=== PATIENT | male | born 1965 | race Caucasian/White ===

== ENCOUNTER 2016-07-22 12:44 | Emergency (ER) | payer MEDICAID ==
[~2016-07-22] VITALS: Wt 81.0 kg
[~2016-07-22 12:44] MED LIST: ALBU8.5H3 INH; CETI10CA PO; GUAI118L94 PO; IBUP-1542 PO
[2016-07-22] MEDS ORDERED: HYDROCODONE/APAP (5/325) TAB PO ONE (13:30)
--- NOTE | 2016-07-22 13:49 | ERD ---
ER Documentation Chief Complaint Date/Time DATE: 07/22/16 TIME: 13:46 Chief Complaint LEFT KNEE PAIN X 6 MONTH HPI This a 51-year-old male who presents to the emergency department today complaining of left knee pain that is intermittent for the past 6 months however worse the past couple of days. He has not taken any medication for the pain. 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 Denies any fevers or chills ROS All systems reviewed and are negative except as per history of present illness. Medications Home Meds Active Scripts Acetaminophen* (Tylophen*) 500 Mg Capsule, 1 CAP PO Q6H Y for PAIN AND OR ELEVATED TEMP, #30 CAP Prov:CLARICE SOSA PA-C 07/22/16 Naproxen* (Naprosyn*) 500 Mg Tablet, 500 MG PO BID Y for PAIN AND/OR INFLAMMATION, #30 TAB Prov:CLARICE SOSA PA-C 07/22/16 Tramadol HCl (Tramadol HCl) 50 Mg Tablet, 50 MG PO Q4 Y for PAIN, #20 TAB Prov:CLARICE SOSA PA-C 07/22/16 Albuterol Sulfate* (Proair HFA*) 8.5 Gm Hfa.aer.ad, 2 PUFF INH Q4H Y for WHEEZING AND SOB, #1 INHALER Prov:SAPPHIRE MUNSON NP 06/11/15 Ibuprofen* (Ibuprofen*) 600 Mg Tablet, 600 MG PO Q6H Y for PAIN AND OR ELEVATED TEMP, #30 TAB Prov:SAPPHIRE MUNSON NP 06/11/15 Cetirizine Hcl* (Zyrtec*) 10 Mg Capsule, 10 MG PO DAILY, #30 TAB Prov:SAPPHIRE MUNSON NP 06/11/15 Guaifenesin-Codeine Phosphate* (Guaifenesin* with Codeine Liq) 120 Ml Liquid, 5 ML PO Q4H for COUGH, #60 ML Prov:SAPPHIRE MUNSON [employer]ARD [employer]RAKEM[employer] 06/11/15 Reported Medications [none] Unknown Strength No Conflict Check 06/11/15 Allergies Allergies: Coded Allergies: No Known Drug Allergies (Unverified Allergy, Unknown, 07/22/16) PMhx/Soc Medical and Surgical Hx: pt denies Medical Hx History of Surgery: Yes (hernia surgery) Anesthesia Reaction: No Hx Neurological Disorder: No Hx Respiratory Disorders: No Hx Cardiac Disorders: No Hx Psychiatric Problems: No Hx Miscellaneous Medical Probl: No Hx Alcohol Use: No Hx Substance Use: No Hx Tobacco Use: No Smoking Status: Never smoker Physical Exam Vitals Vital Signs Date Time Temp Pulse Resp B/P Pulse Ox O2 Delivery O2 Flow Rate FiO2 07/22/16 12:53 98.0 69 18 122/80 99 Physical Exam Const: No acute distress Head: Atraumatic Eyes: Normal Conjunctiva ENT: Normal External Ears, Nose and Mouth. Neck: Full range of motion..~ No meningismus. Resp: Clear to auscultation bilaterally Cardio: Regular rate and rhythm, no murmurs Skin: No petechiae or rashes MSK: No obvious deformity. No effusion. No ecchymosis. Tenderness to palpation medial joint line. Full active range of motion. Pulses 2+. Distal neurovascularly intact. Neur: Awake and alert Psych: Normal Mood and Affect Results 24 hrs Current Medications Medications (Trade) Dose Ordered Sig/William Route PRN Reason Start Time Stop Time Status Last Admin Dose Admin Acetaminophen/ Hydrocodone Bitart (Mead (5/325)) 1 tab ONCE ONCE PO 07/22/16 13:30 07/22/16 13:31 DC 07/22/16 13:21 DIAGNOSTIC IMAGING REPORT Patient: EUGENE SHANE : 1965 Age: 51 Sex: M MR #: [id number] DOS: 07/22/16 0000 Ordering MD: CLARICE SOSA PA-C Location: [facility] Room/Bed: PROCEDURE: XR Knee. CLINICAL INDICATION: Pain TECHNIQUE: AP, lateral and oblique view of the left knee were obtained. The images reviewed on a PACS workstation. COMPARISON: None. FINDINGS: Three views of the left knee demonstrate no displaced fracture. No gross malalignment is seen. There is no significant degenerate change. No patellofemoral disease is identified. No knee joint effusion is seen.. The bones normally mineralized. The soft tissues are unremarkable. IMPRESSION: No acute fracture dislocation RPTAT: .Jay Moreno MD, MD Date Time Electronically viewed and signed by .Jay Moreno MD, MD on 07/22/2016 14:05 .W/ CC: CLARICE SOSA PA-C Procedures/MDM This a 51-year-old male who presents the emergency department complaining of left knee pain that is been intermittent for the past 6 months and worse for the past 2 days. Given patient's duration of symptoms I did obtain images. Per the radiology report images of the left knee show no gross malalignment. There is no significant degenerative changes. There are no patellofemoral disease identified. There is no knee joint effusion seen. Soft tissues are unremarkable. Patient is afebrile and otherwise well-appearing. There is no erythema or warmth and low suspicion for septic joint or gout. Patient has left knee pain that is chronic of uncertain etiology.I explained to the patient that the x- rays will not look at his ligaments or cartilage. I have instructed the patient that he needs to follow-up with his primary care physician for possible referral to orthopedics. Patient understood. Patient was given Mead for pain. I will give him a prescription for tramadol and Naprosyn, Tylenol for home. He is instructed to apply ice. At this time the patient is stable for discharge and outpatient management. Patient should follow up with their PCP in the next 1-2 days. They may return to the emergency department sooner for any persistent or worsening of symptoms. Patient understood and agreed with the plan. Departure Diagnosis: Primary Impression: Knee pain Laterality: left Chronicity: chronic Qualified Code: M25.562 - Chronic pain of left knee Condition: Fair CLARICE SOSA PA-C Jul 22, 2016 13:49
--- NOTE | 2016-07-22 14:05 | RADRPT ---
PROCEDURE: XR Knee. CLINICAL INDICATION: Pain TECHNIQUE: AP, lateral and oblique view of the left knee were obtained. The images reviewed on a PACS workstation. COMPARISON: None. FINDINGS: Three views of the left knee demonstrate no displaced fracture. No gross malalignment is seen. The re is no significant degenerate change. No patellofemoral disease is identified. No knee joint effus ion is seen.. The bones normally mineralized. The soft tissues are unremarkable. IMPRESSION: No acute fracture dislocation RPTAT: HH .Jay Moreno MD, MD Date Time Electronically viewed and signed by .Jay Moreno MD, on 07/22/2016 14:05 .W/
[2016-07-22] MEDS ORDERED: TRAM50TA2 PO (14:17)
[2016-07-22] MEDS ORDERED: NAPR-260 PO (14:18)
[2016-07-22] MEDS ORDERED: ACET500C5 PO (14:19)
== END 2016-07-22 14:34 | disposition home or self-care (01) ==
LOC: FTE 12:44
DX: M25.562 Pain in left knee (principal)
CPT/HCPCS: 73562; Z7502; Z7610

== ENCOUNTER 2017-06-07 06:40 | Emergency (ER) | END 2017-06-07 09:22 | disposition home or self-care (01) ==

== ENCOUNTER 2018-05-16 00:28 | Emergency (ER) | payer MEDICAID ==
[~2018-05-16] VITALS: Wt 87.0 kg
[~2018-05-16 00:28] MED LIST changes: +ACET500C5 PO; -ALBU8.5H3 INH; +ALBU8.5H8 INH; +DOCU-144 PO; +NAPR-985 PO; +OSEL75CA23 PO; +TRAM50TA2 PO
[2018-05-16] MEDS ORDERED: ONDANSETRON 4 MG INJ IV STA (01:38)
[2018-05-16] MEDS ORDERED: morphine 4 MG/ML VIAL IV STA (01:38)
[2018-05-16] MEDS ORDERED: SOD CHLORIDE 0.9% 1,000 ML IV STA (01:38)
[2018-05-16] MEDS ORDERED: AMLO-147 PO (02:56)
[2018-05-16] MEDS ORDERED: POTA10TA18 PO (02:56)
[2018-05-16] MEDS ORDERED: PRAV20TA63 PO (02:56)
[2018-05-16] MEDS ORDERED: TRAM50TA2 PO (05:12)
[2018-05-16] MEDS ORDERED: ONDA4TAB14 PO (05:12)
[2018-05-16 05:40] VITALS: BP 125/80; PULSE 80; RESP 15
--- NOTE | 2018-05-24 00:06 | ERD ---
ER Documentation Chief Complaint Chief Complaint AP, VOMITING X'S 4 HOURS HPI This is a 53-year-old male with abdominal pain vomiting for 4 hours. Pain is mild to moderate intensity no exacerbating factors. Vomiting is 4 episodes nonbilious. No fevers no chills. No other current complaints. ROS All systems reviewed and are negative except as per history of present illness. Medications Home Meds Active Scripts Prednisone* (Prednisone*) 20 Mg Tab, 40 MG PO DAILY for 2 Days, TAB Start May 22, 2018 Prov:HYUN WEATHERS MD 05/21/18 Diphenhydramine Hcl* (Benadryl*) 25 Mg Cap, 25 MG PO Q6, #20 CAP Prov:HYUN WEATHERS MD 05/21/18 Ondansetron (Ondansetron Odt) 4 Mg Tab.rapdis, 4 MG PO Q6H PRN for NAUSEA AND/OR VOMITING, #10 TAB Prov:LANRE BARNEY S. 05/16/18 Tramadol HCl (Tramadol HCl) 50 Mg Tablet, 50 MG PO Q4 PRN for PAIN, #20 TAB Prov:LANRE BARNEY S. 05/16/18 Docusate Sodium* (Colace*) 100 Mg Capsule, 100 MG PO BID, #60 CAP Prov:USAMA OLIVERA 06/07/17 Acetaminophen* (Tylophen*) 500 Mg Capsule, 1 CAP PO Q6H PRN for PAIN AND OR ELEVATED TEMP, #30 CAP Prov:CLARICE SOSA PA-C 07/22/16 Ibuprofen* (Ibuprofen*) 600 Mg Tablet, 600 MG PO Q6H PRN for PAIN AND OR ELEVATED TEMP, #30 TAB Prov:SAPPHIRE MUNSON NP 06/11/15 Reported Medications Amlodipine Besylate* (Amlodipine Besylate*) 10 Mg Tablet, 10 MG PO DAILY, #30 TAB 05/16/18 Potassium Citrate* (Potassium Citrate* ER) 10 Meq Tablet.sa, 10 MEQ PO BID, TAB.SA 05/16/18 Pravastatin Sodium* (Pravastatin Sodium*) 20 Mg Tablet, 20 MG PO HS, #30 TAB 05/16/18 Allergies Allergies: Coded Allergies: No Known Drug Allergies (Unverified Allergy, Unknown, 05/16/18) PMhx/Soc History of Surgery: Yes (hernia surgery) Anesthesia Reaction: No Hx Neurological Disorder: No Hx Respiratory Disorders: No Hx Cardiac Disorders: No Hx Psychiatric Problems: No Hx Miscellaneous Medical Probl: Yes (GASTRITIS) Hx Alcohol Use: No Hx Substance Use: No Hx Tobacco Use: No Smoking Status: Never smoker Physical Exam Physical Exam Const: No acute distress Head: Atraumatic Eyes: Normal Conjunctiva ENT: Normal External Ears, Nose and Mouth. Neck: Full range of motion. No meningismus. Resp: Clear to auscultation bilaterally Cardio: Regular rate and rhythm, no murmurs Abd: Soft, non tender, non distended. Normal bowel sounds Skin: No petechiae or rashes Back: No midline or flank tenderness Ext: No cyanosis, or edema Neur: Awake and alert Psych: Normal Mood and Affect Results 24 hrs Laboratory Tests Test 05/16/18 02:00 05/16/18 04:46 White Blood Count 8.6 10^3/ul Red Blood Count 5.32 10^6/ul Hemoglobin 15.8 g/dl Hematocrit 45.4 % Mean Corpuscular Volume 85.3 fl Mean Corpuscular Hemoglobin 29.7 pg Mean Corpuscular Hemoglobin Concent 34.8 g/dl Red Cell Distribution Width 12.3 % Platelet Count 152 10^3/UL Mean Platelet Volume 10.2 fl Immature Granulocytes % 0.300 % Neutrophils % 89.7 % Lymphocytes % 3.5 % Monocytes % 4.4 % Eosinophils % 1.4 % Basophils % 0.7 % Nucleated Red Blood Cells % 0.0 /100WBC Immature Granulocytes # 0.030 10^3/ul Neutrophils # 7.7 10^3/ul Lymphocytes # 0.3 10^3/ul Monocytes # 0.4 10^3/ul Eosinophils # 0.1 10^3/ul Basophils # 0.1 10^3/ul Nucleated Red Blood Cells # 0.0 10^3/ul Sodium Level 141 mmol/L Potassium Level 4.0 mmol/L Chloride Level 108 mmol/L Carbon Dioxide Level 22 mmol/L Anion Gap 11 Blood Urea Nitrogen 17 mg/dl Creatinine 0.82 mg/dl Est Glomerular Filtrat Rate mL/min > 60 mL/min Glucose Level 138 mg/dl Calcium Level 8.7 mg/dl Total Bilirubin 0.9 mg/dl Direct Bilirubin 0.00 mg/dl Indirect Bilirubin 0.9 mg/dl Aspartate Amino Transf (AST/SGOT) 29 IU/L Alanine Aminotransferase (ALT/SGPT) 25 IU/L Alkaline Phosphatase 65 IU/L Total Protein 7.1 g/dl Albumin 4.3 g/dl Globulin 2.80 g/dl Albumin/Globulin Ratio 1.53 Lipase 44 U/L Urine Color YELLOW Urine Clarity CLEAR Urine pH 6.0 Urine Specific [place] 1.021 Urine Ketones TRACE mg/dL Urine Nitrite NEGATIVE mg/dL Urine Bilirubin NEGATIVE mg/dL Urine Urobilinogen 2+ mg/dL Urine Leukocyte Esterase NEGATIVE Patricia/ul Urine Hemoglobin NEGATIVE mg/dL Urine Glucose NEGATIVE mg/dL Urine Total Protein NEGATIVE mg/dl Current Medications Medications Dose Sig/William Start Time Status Last (Trade) Ordered Route PRN Stop Time Admin Dose Reason Admin Sodium 1,000 ml @ Q1H STAT 05/16/18 DC 05/16/18 Chloride 1,000 mls/hr IV 01:38 01:57 05/16/18 02:37 Morphine 4 mg ONCE STAT 05/16/18 DC 05/16/18 Sulfate IV 01:38 01:58 (morphine) 05/16/18 01:40 Ondansetron 4 mg ONCE STAT 05/16/18 DC 05/16/18 HCl (Zofran IV 01:38 01:58 Inj) 05/16/18 01:40 Procedures/MDM Medical decision making: This is a 53-year-old male has multiple causes of moderate abdominal pain including sludge in his gallbladder upon a hiatal hernia. At this point he has no evidence of surgical abdomen and I feel he is phase stable for trial of outpatient management. Patient's gastrointestinal symptoms have stabilized while in the department. No evidence of severe dehydration, sepsis, or surgical abdomen. Extensive discussion with family and patient that occult disease cannot be ruled out. 8 hour recheck for repeat abdominal exam is planned. Departure Diagnosis: Primary Impression: Abdominal pain Abdominal location: unspecified location Qualified Codes: R10.9 - Unspecified abdominal pain Condition: Stable Patient Instructions: Gallstones LANRE BARNEY May 24, 2018 00:06
== END 2018-05-16 05:40 | disposition home or self-care (01) ==
LOC: E/R 00:28
DX: R10.9 Unspecified abdominal pain (principal); R11.10 Vomiting, unspecified
CPT/HCPCS: 71045; 74176; 76705; 80053; 81003; 83690; 85025; J2270; J2405; J7030; 36415; 96374; 96375

== ENCOUNTER 2018-05-21 10:52 | Emergency (ER) | payer MEDICAID ==
[~2018-05-21] VITALS: Ht 167.6 cm; Wt 84.8 kg
[~2018-05-21 10:52] MED LIST changes: -ALBU8.5H8 INH; +AMLO-147 PO; -CETI10CA PO; -GUAI118L94 PO; -NAPR-985 PO; +ONDA4TAB14 PO; -OSEL75CA23 PO; +POTA10TA18 PO; +PRAV20TA63 PO
[2018-05-21 10:55] VITALS: BP 114/76; PULSE 73; RESP 20; Ht 167.6 cm; Wt 84.8 kg
[2018-05-21] MEDS ORDERED: DIPHENHYDRAMINE 25 MG CAP PO ONE (12:00)
[2018-05-21] MEDS ORDERED: predniSONE 20 MG TAB PO ONE (12:00)
[2018-05-21] MEDS ORDERED: BEN25 PO (12:03)
[2018-05-21] MEDS ORDERED: PRED20TA PO (12:03)
--- NOTE | 2018-05-21 12:05 | ERD ---
ER Documentation Chief Complaint Chief Complaint Complains of an allergic reaction since this am HPI This 53-year-old male presents with a rash since this morning. Is itchy on his trunk and extremities. History significant for starting tramadol and Zofran 3 days ago. Denies shortness of breath, fevers, additional symptoms. ROS All systems reviewed and are negative except as per history of present illness. Medications Home Meds Active Scripts Prednisone* (Prednisone*) 20 Mg Tab, 40 MG PO DAILY for 2 Days, TAB Start May 22, 2018 Prov:HYUN WEATHERS MD 05/21/18 Diphenhydramine Hcl* (Benadryl*) 25 Mg Cap, 25 MG PO Q6, #20 CAP Prov:HYUN WEATHERS MD 05/21/18 Ondansetron (Ondansetron Odt) 4 Mg Tab.rapdis, 4 MG PO Q6H PRN for NAUSEA AND/OR VOMITING, #10 TAB Prov:LANRE BARNEY S. 05/16/18 Tramadol HCl (Tramadol HCl) 50 Mg Tablet, 50 MG PO Q4 PRN for PAIN, #20 TAB Prov:LANRE BARNEY S. 05/16/18 Docusate Sodium* (Colace*) 100 Mg Capsule, 100 MG PO BID, #60 CAP Prov:USAMA OLIVERA 06/07/17 Acetaminophen* (Tylophen*) 500 Mg Capsule, 1 CAP PO Q6H PRN for PAIN AND OR ELEVATED TEMP, #30 CAP Prov:CLARICE SOSA PA-C 07/22/16 Ibuprofen* (Ibuprofen*) 600 Mg Tablet, 600 MG PO Q6H PRN for PAIN AND OR ELEVATED TEMP, #30 TAB Prov:SAPPHIRE MUNSON NP 06/11/15 Reported Medications Amlodipine Besylate* (Amlodipine Besylate*) 10 Mg Tablet, 10 MG PO DAILY, #30 TAB 05/16/18 Potassium Citrate* (Potassium Citrate* ER) 10 Meq Tablet.sa, 10 MEQ PO BID, TAB.SA 05/16/18 Pravastatin Sodium* (Pravastatin Sodium*) 20 Mg Tablet, 20 MG PO HS, #30 TAB 05/16/18 Discontinued Reported Medications [none] Unknown Strength No Conflict Check 06/11/15 Discontinued Scripts Albuterol Sulfate* (Proair HFA*) 8.5 Gm Hfa.aer.ad, 2 PUFF INH Q6, #1 INHALER Prov:JAROD,USAMA 06/07/17 Oseltamivir Phosphate* (Tamiflu*) 75 Mg Capsule, 75 MG PO BID for 5 Days, CAP Prov:JAROD,USAMA 06/07/17 Naproxen* (Naprosyn*) 500 Mg Tablet, 500 MG PO BID PRN for PAIN AND/OR INFLAMMATION, #30 TAB Prov:CLARICE SOSA PA-C 07/22/16 Tramadol HCl (Tramadol HCl) 50 Mg Tablet, 50 MG PO Q4 PRN for PAIN, #20 TAB Prov:CLARICE SOSA PA-C 07/22/16 Albuterol Sulfate* (Proair HFA*) 8.5 Gm Hfa.aer.ad, 2 PUFF INH Q4H PRN for WHEEZING AND SOB, #1 INHALER Prov:SAPPHIRE MUNSON PARENT COACH 06/11/15 Cetirizine Hcl* (Zyrtec*) 10 Mg Capsule, 10 MG PO DAILY, #30 TAB Prov:SAPPHIRE MUNSON PARENT COACH 06/11/15 Guaifenesin-Codeine Phosphate* (Guaifenesin* with Codeine Liq) 120 Ml Liquid, 5 ML PO Q4H for COUGH, #60 ML Prov:SAPPHIRE MUNSON PARENT COACH 06/11/15 Allergies Allergies: Coded Allergies: No Known Drug Allergies (Unverified Allergy, Unknown, 05/16/18) PMhx/Soc History of Surgery: Yes (hernia surgery) Anesthesia Reaction: No Hx Neurological Disorder: No Hx Respiratory Disorders: No Hx Cardiac Disorders: No Hx Psychiatric Problems: No Hx Miscellaneous Medical Probl: Yes (GASTRITIS) Hx Alcohol Use: No Hx Substance Use: No Hx Tobacco Use: No FmHx Family History: No diabetes, No coronary disease, No other Physical Exam Vitals Vital Signs Date Temp Pulse Resp B/P (MAP) Pulse Ox O2 O2 Flow FiO2 Time Delivery Rate 05/21/18 98.1 73 20 114/76 98 10:55 (89) Physical Exam Const: No acute distress Head: Atraumatic Eyes: Normal Conjunctiva ENT: Normal External Ears, Nose and Mouth. TMs normal. Oropharynx normal. Neck: Full range of motion. No meningismus. Resp: Clear to auscultation bilaterally Cardio: Regular rate and rhythm, no murmurs Abd: Soft, non tender, non distended. Normal bowel sounds Skin: No petechiae or purpura. She is mild urticarial type rash with dermatographism Back: No midline or flank tenderness Ext: No cyanosis, or edema Neur: Awake and alert Psych: Normal Mood and Affect Results 24 hrs Current Medications Medications Dose Sig/William Start Time Status Last (Trade) Ordered Route PRN Stop Time Admin Dose Reason Admin Prednisone 40 mg ONCE ONCE 05/21/18 DC 05/21/18 (Prednisone) PO 12:00 12:00 05/21/18 12:01 25 mg ONCE ONCE 05/21/18 DC 05/21/18 Diphenhydrami PO 12:00 12:00 ne HCl 05/21/18 12:01 (Benadryl) Procedures/MDM Patient presents with a urticarial type rash since this morning without evidence of anaphylaxis, signs of cellulitis. He may have an allergy although medications were started 3 days ago. He denies any new foods otherwise. He denies any previous history of allergies or hives. Prednisone 40 mg by mouth and Benadryl 25 mg by mouth as rashes mild. Will be treated with continued observation at home, 2 days of prednisone, Benadryl, primary care follow-up and return precautions. The patient was stable with no new complaints during the ER course. Clinically, there is no current evidence to suggest meningitis, sepsis, acute abdomen, pneumonia, stroke, acute coronary syndrome, pulmonary embolism, aortic dissection or any other emergent condition appearing to require further evaluation or hospitalization. Patient counseled regarding my diagnostic impression and care plan. Prior to discharge all questions answered. Pt agrees with treatment plan and understands strict return precautions. Pt is instructed to follow up with primary care provider within 24-48 hours. Precautionary instructions provided including instructions to return to the ER if not improving or for any worsening or changing symptoms or concerns. Disclaimer: Inadvertent spelling and grammatical errors are likely due to EHR/dictation software use and do not reflect on the overall quality of patient care. Also, please note that the electronic time recorded on this note does not necessarily reflect the actual time of the patient encounter. Departure Diagnosis: Primary Impression: Allergic reaction Encounter type: initial encounter Qualified Codes: T78.40XA - Allergy, unspecified, initial encounter Condition: Stable Patient Instructions: Allergic Reaction, Drug, Hives Additional Instructions: Cheque otro vez con nichols doctor primario en el proximo corado or regresa para mas o nueva simptomas. HYUN WEATHERS MD May 21, 2018 12:05
== END 2018-05-21 12:11 | disposition home or self-care (01) ==
LOC: FTE 10:52
DX: R21 Rash and other nonspecific skin eruption (principal); T40.4X5A Adverse effect of other synthetic narcotics, initial encounter; T45.0X5A Adverse effect of antiallergic and antiemetic drugs, initial encounter; L29.9 Pruritus, unspecified
CPT/HCPCS: J7512; Z7502; Z7610; 99283